=== PATIENT | female | born 1970 | race Caucasian/White ===

== ENCOUNTER 2021-11-21 14:09 | Emergency (ER) | payer MEDICAID ==
[~2021-11-21] VITALS: Ht 160 cm; Wt 54.8 kg
[~2021-11-21 14:09] MED LIST: FOLI1TAB33; GABA-486; LACT10SO3; LORA0.5T; MGX400T PO; OXYC-556; POTA-164; RISP0.5T65; SPIR50TA4
--- NOTE | 2021-11-21 14:48 | ED Abdominal Pain ---
General Chief Complaint: Abdominal/GI Problems Stated Complaint: ABNORMAL LABS Source of Information: Patient Exam Limitations: No Limitations History of Present Illness Date Seen by Provider: Nov 21, 2021 Time Seen by Provider: 14:46 Initial Comments To ER by private vehicle from [facility] with reports of abdominal distention and swelling. No fevers. She has alcoholic cirrhosis and has been sober for 2 months. She has had a paracentesis done once before. She presented to [facility] with these symptoms including right upper abdominal pain. Symptoms present for about a month. She was referred to the emergency room for concern of spontaneous bacterial peritonitis. Also had some hypokalemia with a reported potassium of 2.6. Timing/Duration: Getting Worse Severity/Quality: Moderate Location: Generalized Abdomen Radiation: No Radiation Activities at Onset: None Allergies and Home Medications Allergies Coded Allergies: No Known Drug Allergies (Unverified , 10/30/15) Patient Home Medication List Home Medication List Reviewed: Yes Folic Acid (Folic Acid) 1 Mg Tablet, (Reported) Entered as Reported by: DENZEL JAMES on 07/03/16 165 Gabapentin (Gabapentin) 100 Mg Capsule, (Reported) Entered as Reported by: DENZEL JAMES on 07/03/16 165 Lactulose (Lactulose) 10 Gm/15 Ml Solution, (Reported) Entered as Reported by: DENZEL JAMES on 07/03/16 165 Lorazepam (Lorazepam) 0.5 Mg Tablet, (Reported) Entered as Reported by: DENZEL JAMES on 07/03/161655 Magnesium Oxide (Magnesium Oxide) 400 Mg Tablet, 400 MG PO BID Prescribed by: LAWRENCE CHAU on 10/30/152133 Oxycodone HCl/Acetaminophen (Oxycodone-Acetaminophen 10-325) 1 Each Tablet, (Reported) Entered as Reported by: DENZEL JAMES on 07/03/16 165 Potassium Chloride (Klor-Con M10) 10 Meq Tab.er.prt, (Reported) Entered as Reported by: DENZEL JAMES on 07/03/16 165 Risperidone (Risperidone) 0.5 Mg Tablet, (Reported) Entered as Reported by: DENZEL JAMES on 07/03/16 165 Spironolactone (Spironolactone) 50 Mg Tablet, (Reported) Entered as Reported by: DENZEL JAMES on 07/03/16 6696 Review of Systems Review of Systems Constitutional: see HPI; No fever EENTM: No Symptoms Reported Respiratory: No Symptoms Reported Cardiovascular: No Symptoms Reported Gastrointestinal: See HPI, Abdominal Pain; Denies Diarrhea, Denies Nausea Genitourinary: No Symptoms Reported Musculoskeletal: no symptoms reported Skin: no symptoms reported Psychiatric/Neurological: No Symptoms Reported Endocrine: No Symptoms Reported Hematologic/Lymphatic: No Symptoms Reported Past Divocyp-Lhwbit-Dcjsrn Hx Immunizations Up To Date Tetanus Booster (TDap): Less than 5yrs Past Medical History Section, Gallbladder 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 Disorders: No Female 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 Disorders: Denies 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 oz. 45.799824kw; BMI Method:Stated General Appearance: WD/WN, no apparent distress HEENT: PERRL/EOMI, normal ENT inspection Respiratory: no respiratory distress, no accessory muscle use Gastrointestinal: soft, other (Right side of her abdomen is tender to palpation, left side is not. Abdomen is distended) Extremities: normal range of motion, non-tender Neurologic/Psychiatric: alert, normal mood/affect, oriented x 3 Skin: normal color, warm/dry Progress/Results/Core Measures Results/Orders Lab Results Laboratory Tests Test 11/21/21 14:40 11/21/21 15:57 Range/Units White Blood Count 10.7 4.3-11.0 10^3/uL Red Blood Count 3.15 L 3.80-5.11 10^6/uL Hemoglobin 10.9 L 11.5-16.0 g/dL Hematocrit 33 L 35-52 % Mean Corpuscular Volume 104 H 80-99 fL Mean Corpuscular Hemoglobin 35 H 25-34 pg Mean Corpuscular Hemoglobin Concent 33 32-36 g/dL Red Cell Distribution Width 17.7 H 10.0-14.5 % Platelet Count 275 130-400 10^3/uL Mean Platelet Volume 10.2 9.0-12.2 fL Immature Granulocyte % (Auto) 1 % Neutrophils (%) (Auto) 78 H 42-75 % Lymphocytes (%) (Auto) 13 12-44 % Monocytes (%) (Auto) 7 0-12 % Eosinophils (%) (Auto) 1 0-10 % Basophils (%) (Auto) 1 0-10 % Neutrophils # (Auto) 8.3 H 1.8-7.8 10^3/uL Lymphocytes # (Auto) 1.4 1.0-4.0 10^3/uL Monocytes # (Auto) 0.8 0.0-1.0 10^3/uL Eosinophils # (Auto) 0.1 0.0-0.3 10^3/uL Basophils # (Auto) 0.1 0.0-0.1 10^3/uL Immature Granulocyte # (Auto) 0.1 0.0-0.1 10^3/uL Prothrombin Time 17.6 H 12.2-14.7 SEC INR Comment 1.4 0.8-1.4 Sodium Level 131 L 135-145 MMOL/L Potassium Level 3.3 L 3.6-5.0 MMOL/L Chloride Level 94 L 98-107 MMOL/L Carbon Dioxide Level 22 21-32 MMOL/L Anion Gap 15 H 5-14 MMOL/L Blood Urea Nitrogen 7 7-18 MG/DL Creatinine 0.68 0.60-1.30 MG/DL Estimat Glomerular Filtration Rate 104 BUN/Creatinine Ratio 10 Glucose Level 127 H 70-105 MG/DL Calcium Level 7.9 L 8.5-10.1 MG/DL Corrected Calcium 9.0 8.5-10.1 MG/DL Magnesium Level 1.2 L 1.6-2.4 MG/DL Total Bilirubin 4.8 H 0.1-1.0 MG/DL Aspartate Amino Transf (AST/SGOT) 76 H 5-34 U/L Alanine Aminotransferase (ALT/SGPT) 11 0-55 U/L Alkaline Phosphatase 149 H 40-136 U/L Total Protein 8.2 6.4-8.2 GM/DL Albumin 2.6 L 3.2-4.5 GM/DL Procalcitonin 0.17 H <0.10 NG/ML My Orders Orders - BIMAL TURNER MAORI LIAISON ADVISER Cbc With Automated Diff (11/21/21 14:25) Comprehensive Metabolic Panel (11/21/21 14:25) Ed Iv/Invasive Line Start (11/21/21 14:25) Magnesium (11/21/21 14:25) Protime With Inr (11/21/21 14:26) Procalcitonin (Pct) (11/21/21 14:26) Body Fluid Cell Count (11/21/21 14:48) Body Fluid Culture (11/21/21 14:48) Cytology Requistion | Nursing (11/21/21 15:57) Albumin 25% 25 Gm/100 Ml (Albumin 25% 25 (11/21/21 16:00) Medications Given in ED Current Medications Medications Dose Ordered Sig/Rita Route Start Time Stop Time Status Last Admin Dose Admin Albumin Human 100 ml @ 50 mls/hr ONCE ONCE IV 11/21/21 16:00 11/21/21 17:59 11/21/21 16:18 50 MLS/HR Vital Signs/I&O 11/21/21 14:21 Temp 36.8 Pulse 121 Resp 20 B/P (MAP) 109/78 (88) Pulse Ox 98 O2 Delivery Room Air Departure Communication (Admissions) 1556-total of 4400 mL of clear yellow ascites fluid was removed. The paracentesis drain was removed covered with gauze and an OpSite. Abdomen feels much better. Impression Primary Impression: Ascites Additional Impression: Cirrhosis Disposition: 01 HOME, SELF-CARE Condition: Stable Departure-Patient Inst. Decision time for Depature: 16:20 Referrals: JUANI RUIZ MD (PCP/Family) Primary Care Physician Patient Instructions: Fluid in the Belly (Ascites) Add. Discharge Instructions: 1. Follow-up with [facility] to discuss getting an ultrasound of the liver. Return to ER for any worsening. All discharge instructions reviewed with patient and/or family. Voiced understanding. BIMAL TURNER APRN Nov 21, 2021 14:48
[2021-11-21 14:49] LABS: BASOPHILS # (AUTO) 0.1 10^3/uL (0.0-0.1); BASOPHILS % (AUTO) 1 % (0-10); EOSINOPHILS # (AUTO) 0.1 10^3/uL (0.0-0.3); EOSINOPHILS % (AUTO) 1 % (0-10); HEMATOCRIT 33 % (35-52); HEMOGLOBIN 10.9 g/dL (11.5-16.0); LYMPHOCYTES # (AUTO) 1.4 10^3/uL (1.0-4.0); LYMPHOCYTES % (AUTO) 13 % (12-44); MEAN CORPUSCULAR HEMOGLOBIN 35 pg (25-34); MEAN CORPUSCULAR HGB CONC 33 g/dL (32-36); MEAN CORPUSCULAR VOLUME 104 fL (80-99); MEAN PLATELET VOLUME 10.2 fL (9.0-12.2); MONOCYTES # (AUTO) 0.8 10^3/uL (0.0-1.0); MONOCYTES % (AUTO) 7 % (0-12); NEUTROPHILS # (AUTO) 8.3 10^3/uL (1.8-7.8); NEUTROPHILS % (AUTO) 78 % (42-75); PLATELET COUNT 275 10^3/uL (130-400); WHITE BLOOD COUNT 10.7 10^3/uL (4.3-11.0)
[2021-11-21 14:59] LABS: INR 1.4 (0.8-1.4); PROTHROMBIN TIME PATIENT 17.6 SEC (12.2-14.7)
[2021-11-21 15:01] LABS: ALBUMIN 2.6 GM/DL (3.2-4.5)
[2021-11-21 15:02] LABS: POTASSIUM 3.3 MMOL/L (3.6-5.0)
[2021-11-21 15:03] LABS: CALCIUM 7.9 MG/DL (8.5-10.1)
[2021-11-21 15:04] LABS: TOTAL PROTEIN 8.2 GM/DL (6.4-8.2)
[2021-11-21 15:06] LABS: BILIRUBIN,TOTAL 4.8 MG/DL (0.1-1.0)
[2021-11-21 15:08] LABS: CREATININE SERUM 0.68 MG/DL (0.60-1.30)
[2021-11-21 15:11] LABS: MAGNESIUM 1.2 MG/DL (1.6-2.4)
[2021-11-21] MEDS ORDERED: ALBUMIN 25% 25 GM/100 ML 100 ML IV ONE (16:00)
--- NOTE | 2021-11-21 16:59 | Progress Note-Post Operative ---
Post-Operative Progess Note Surgeon (s)/Tile Inspector (s) Surgeon MARY LARKIN DO Tile Inspector: none Pre-Operative Diagnosis ascites Post-Operative Diagnosis same Procedure & Operative Findings Date of Procedure 11/21/21 Procedure Performed/Findings Paracentesis The patient was in her room in the ER. Used the US to make sure there was enough fluid in the abdomen to drain and marked best site to go in with pen. The abdomen was then prepped and draped and timeout was performed. Local anesthetic was infiltrated and #11 blade scalpel was used to make a small skin incision. Cocg-A-Mjwheexr needle and catheter were then advanced until straw- colored fluid was withdrawn. The catheter was advanced and the needle was removed. A total of 4400 mL of straw-colored fluid was withdrawn. Once done draining, the catheter was removed and sterile bandage was applied. Fluid was sent for culure. The patient tolerated procedure well without any complications. Anesthesia Type local lidocaine Estimated Blood Loss Estimated blood loss (mL): scant Specimens/Packing Specimens Removed 4400ml of ascitic fluid MARY LARKIN DO Nov 21, 2021 16:59
--- NOTE | 2021-11-21 17:05 | Consultation - Surgery ---
History of Present Illness History of Present Illness Patient Consulted On(anirudh/time) 11/21/21 16:59 Time Seen by Provider: 14:42 History of Present Illness Surgery asked to consult regarding ascites. HPI per ED: To ER by private vehicle from [facility] with reports of abdominal distention and swelling. No fevers. She has alcoholic cirrhosis and has been sober for 2 months. She has had a paracentesis done once before. She presented to [facility] with these symptoms including right upper abdominal pain. Symptoms present for about a month. She was referred to the emergency room for concern of spontaneous bacterial peritonitis. Also had some hypokalemia with a reported potassium of 2.6. Timing/Duration: Getting Worse Severity/Quality: Moderate Location: Generalized Abdomen Radiation: No Radiation Activities at Onset: None When I spoke to her she stated this last time she had paracentesis was 4-5 years ago. She rated the pain as 5 out of 10, kind of a dull pain. Allergies and Home Medications Allergies Coded Allergies: No Known Drug Allergies (Unverified , 10/30/15) Patient Home Medication List Home Medication List Reviewed: Yes Folic Acid (Folic Acid) 1 Mg Tablet, (Reported) Entered as Reported by: DENZEL JAMES on 07/03/16 165 Gabapentin (Gabapentin) 100 Mg Capsule, (Reported) Entered as Reported by: DENZEL JAMES on 07/03/16 165 Lactulose (Lactulose) 10 Gm/15 Ml Solution, (Reported) Entered as Reported by: DENZEL JAMES on 07/03/16 165 Lorazepam (Lorazepam) 0.5 Mg Tablet, (Reported) Entered as Reported by: DENZEL JAMES on 07/03/16 165 Magnesium Oxide (Magnesium Oxide) 400 Mg Tablet, 400 MG PO BID Prescribed by: LAWRENCE CHAU on 10/30/15 2134 Oxycodone HCl/Acetaminophen (Oxycodone-Acetaminophen 10-325) 1 Each Tablet, (Reported) Entered as Reported by: DENZEL JAMES on 07/03/161655 Potassium Chloride (Klor-Con M10) 10 Meq Tab.er.prt, (Reported) Entered as Reported by: DENZEL JAMES on 07/03/16 165 Risperidone (Risperidone) 0.5 Mg Tablet, (Reported) Entered as Reported by: DENZEL JAMES on 07/03/161655 Spironolactone (Spironolactone) 50 Mg Tablet, (Reported) Entered as Reported by: DENZEL JAMES on 07/03/161655 Past Awhmljx-Nrbdcm-Eofqxp Hx Patient Social History Smoking Status: Smoker Current Status UNK Recent Hopitalizations: No Alcohol Use?: Yes Have you traveled recently?: No Immunizations Up To Date Tetanus Booster (TDap): Less than 5yrs Surgeries History of Surgeries: Yes Surgeries: Section, Gallbladder Respiratory History of Respiratory Disorde: No Cardiovascular History of Cardiac Disorders: No Neurological History of Neurological Disord: No 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 System Hx 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 Disorders: No Female 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 Genitourinary History of Genitourinary Disor: No Gastrointestinal History of Gastrointestinal Di: Yes Gastrointestinal Disorders: Liver Disease/Jaundice, Cirrhosis Endocrine History of Endocrine Disorders: No Cancer History of Cancer: No Psychosocial History of Psychiatric Problem: Yes Behavioral Health Disorders: Anxiety, Depression Family Medical History Significant Family History: No Pertinent Family Hx Review of Systems-General Constitutional: No chills; weight gain EENTM: No blurred vision, No mouth swelling, No epistaxis Respiratory: No cough, No dyspnea on exertion, No hemoptysis Cardiovascular: No chest pain, No edema, No palpitations Gastrointestinal: abdominal pain; No nausea, No vomiting Genitourinary: No dysuria, No frequency, No hematuria Musculoskeletal: joint pain, muscle cramps Psychiatric/Neurological: Anxiety, Depressed; Denies Tremors Physical Exam-General Problems Physical Exam Vital Signs Vital Signs - First Documented 11/21/21 14:21 Temp 36.8 Pulse 121 Resp 20 B/P (MAP) 109/78 (88) Pulse Ox 98 O2 Delivery Room Air Capillary Refill : General Appearance: no apparent distress, thin Eyes: Bilateral Eye PERRL, Bilateral Eye EOMI HEENT: pharynx normal; No scleral icterus (R), No scleral icterus (L) Neck: non-tender, supple Respiratory: lungs clear, normal breath sounds, no respiratory distress, no accessory muscle use Cardiovascular: regular rate, rhythm, no murmur Gastrointestinal: soft, distended, hepatomegaly; No spleenomegaly Neurologic/Psychiatric: alert, oriented x 3 Skin: normal color, warm/dry Data Review Labs Laboratory Tests 11/21/21 14:40: White Blood Count 10.7, Red Blood Count 3.15L, Hemoglobin 10.9L, Hematocrit 33L, Mean Corpuscular Volume 104H, Mean Corpuscular Hemoglobin 35H, Mean Corpuscular Hemoglobin Concent 33, Red Cell Distribution Width 17.7H, Platelet Count 275, Mean Platelet Volume 10.2, Immature Granulocyte % (Auto) 1, Neutrophils (%) (Auto) 78H, Lymphocytes (%) (Auto) 13, Monocytes (%) (Auto) 7, Eosinophils (%) (Auto) 1, Basophils (%) (Auto) 1, Neutrophils # (Auto) 8.3H, Lymphocytes # (Auto) 1.4, Monocytes # (Auto) 0.8, Eosinophils # (Auto) 0.1, Basophils # (Auto) 0.1, Immature Granulocyte # (Auto) 0.1, Prothrombin Time 17.6H, INR Comment 1.4, Sodium Level 131L, Potassium Level 3.3L, Chloride Level 94L, Carbon Dioxide Level 22, Anion Gap 15H, Blood Urea Nitrogen 7, Creatinine 0.68, Estimat Glomerular Filtration Rate 104, BUN/Creatinine Ratio 10, Glucose Level 127H, Calcium Level 7.9L, Corrected Calcium 9.0, Magnesium Level 1.2L, Total Bilirubin 4.8H, Aspartate Amino Transf (AST/SGOT) 76H, Alanine Aminotransferase (ALT/SGPT) 11, Alkaline Phosphatase 149H, Total Protein 8.2, Albumin 2.6L, Procalcitonin 0.17H 11/21/21 15:57: Assessment/Plan Assessment/Plan Assessment/Plan Ascites Abd pain Paracentesis and send fluid for culture MARY LARKIN DO Nov 21, 2021 17:04
[2021-11-21 17:12] LABS: BODY FLUID APPEARENCE CLEAR; BODY FLUID COLOR YELLOW; BODY FLUID RBC COUNT 43.75 /uL; BODY FLUID SOURCE PERITON; BODY FLUID WBC TOTAL COUNT 95 /uL
[2021-11-21 18:21] LABS: BF OTHER CELLS 1 %; LYMPHOCYTES,BODY FLUID 14 %
[2021-11-21 19:00] VITALS: BP 94/62
== END 2021-11-21 18:59 | disposition home or self-care (01) ==
LOC: EDUNIT# 14:09 → ER 14:10
DX: R18.8 Other ascites (principal); K74.60 Unspecified cirrhosis of liver; F41.9 Anxiety disorder, unspecified; Z79.899 Other long term (current) drug therapy
CPT/HCPCS: 36415; 80053; 83735; 84145; 85025; 85610; 87070; 87205; 89051

== ENCOUNTER 2021-12-03 20:21 | Inpatient (IN) | payer MEDICAID ==
[~2021-12-03] VITALS: Ht 160 cm; Wt 59.4 kg
--- NOTE | 2021-12-03 20:55 | ED Abdominal Pain ---
General Stated Complaint: SOA - ABD PAIN Source of Information: Patient Exam Limitations: No Limitations (BIJAN BROWN) History of Present Illness Date Seen by Provider: Dec 03, 2021 Time Seen by Provider: 20:52 Initial Comments Patient is a 51-year-old female presents ED with abdominal pain. Pain started today around 12:00. Bilateral abdominal pain described as dull. Pain has been constant. She reports nausea without vomiting or diarrhea. Similar type pain when she was here on November 21 and was treated with paracentesis with improvement . She reports increase swelling of her abdomen since having the paracentesis. Negative culture of her peritoneal fluid ruling out spontaneous bacterial peritonitis. She denies any fever. She feels she is short of breath. She noted leg swelling this past Thursday. No history of heart failure currently on Lasix, lactulose and spironolactone. Following a Dr. Dumont. She states the pain got worse this evening. Associated diarrhea. (BIJAN BROWN) Allergies and Home Medications Allergies Coded Allergies: No Known Drug Allergies (Unverified , 10/30/15) Patient Home Medication List Home Medication List Reviewed: Yes (BIJAN BROWN) Bupropion HCl (Bupropion HCl) 75 Mg Tablet, 75 MG PO DAILY, (Reported) Entered as Reported by: RIVER GARCIA on 12/04/211135 Last Action: Continued Furosemide (Furosemide) 40 Mg Tablet, 40 MG PO DAILY, (Reported) Entered as Reported by: RIVER GARCIA on 12/04/211134 Last Action: Reviewed Lactulose (Lactulose) 10 Gm/15 Ml Solution, 15 ML PO TID PRN for CONSTIPATION- 3RD LINE, (Reported) Entered as Reported by: RIVER GARCIA on 12/04/211134 Last Action: Converted Pantoprazole Sodium (Pantoprazole Sodium) 40 Mg Tablet.dr, 40 MG PO DAILY, (Reported) Entered as Reported by: RIVER GARCIA on 12/04/211134 Last Action: Continued Potassium Chloride (Potassium Chloride) 20 Meq Tablet.er, 20 MEQ PO DAILY, (Reported) Entered as Reported by: RIVER GARCIA on 12/04/211134 Last Action: Reviewed Spironolactone (Spironolactone) 50 Mg Tablet, 50 MG PO DAILY, (Reported) Entered as Reported by: RIVER GARCIA on 12/04/21 1135 Last Action: Reviewed Discontinued Medications Folic Acid (Folic Acid) 1 Mg Tablet, (Reported) Discontinued Reason: No Longer Taking Entered as Reported by: DENZEL JAMES on 07/03/161655 Last Action: Discontinued Gabapentin (Gabapentin) 100 Mg Capsule, (Reported) Discontinued Reason: No Longer Taking Entered as Reported by: DENZEL JAMES on 07/03/161655 Last Action: Discontinued Lactulose (Lactulose) 10 Gm/15 Ml Solution, (Reported) Discontinued Reason: No Longer Taking Entered as Reported by: DENZEL JAMES on 07/03/161655 Last Action: Discontinued Lorazepam (Lorazepam) 0.5 Mg Tablet, (Reported) Discontinued Reason: No Longer Taking Entered as Reported by: DENZEL JAMES on 07/03/161655 Last Action: Discontinued Magnesium Oxide (Magnesium Oxide) 400 Mg Tablet, 400 MG PO BID Discontinued Reason: No Longer Taking Prescribed by: LAWRENCE CHAU on 10/30/152133 Last Action: Discontinued Oxycodone HCl/Acetaminophen (Oxycodone-Acetaminophen 10-325) 1 Each Tablet, (Reported) Discontinued Reason: No Longer Taking Entered as Reported by: DENZEL JAMES on 07/03/161655 Last Action: Discontinued Potassium Chloride (Klor-Con M10) 10 Meq Tab.er.prt, (Reported) Discontinued Reason: No Longer Taking Entered as Reported by: DENZEL JAMES on 07/03/161655 Last Action: Discontinued Risperidone (Risperidone) 0.5 Mg Tablet, (Reported) Discontinued Reason: No Longer Taking Entered as Reported by: DENZEL JAMES on 07/03/161655 Last Action: Discontinued Spironolactone (Spironolactone) 50 Mg Tablet, (Reported) Discontinued Reason: No Longer Taking Entered as Reported by: DENZEL JAMES on 07/03/161655 Last Action: Discontinued Review of Systems Review of Systems Constitutional: No chills, No diaphoresis, No dizziness, No fever, No malaise, No weakness EENTM: No Eye Tearing, No Ear Drainage, No Ear Pain Respiratory: Denies Cough; Shortness of Air; Denies SOA With Exertion, Denies SOA at Rest Cardiovascular: Chest Pain, Edema; Denies Irregular Heart Rate Gastrointestinal: Denies Abdomen Distended; Abdominal Pain; Denies Diarrhea; Nausea; Denies Vomiting Genitourinary: Denies Burning, Denies Discharge Musculoskeletal: No back pain, No joint pain Skin: No change in color, No change in hair/nails (BIJAN BROWN) All Other Systems Reviewed Negative Unless Noted: Yes (BIJAN BROWN) Past Wdlebgz-Afmiif-Mjvexp Hx Immunizations Up To Date Tetanus Booster (TDap): Less than 5yrs (BIJAN BROWN) Past Medical History Surgeries: Yes Section, Gallbladder Respiratory: No Cardiac: No Neurological: No 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 Disorders: No Female 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 oz. 45.179712us; 21.00 BMI Method:Stated General Appearance: WD/WN, no apparent distress HEENT: PERRL/EOMI, normal ENT inspection, TMs normal Neck: non-tender, full range of motion, supple, normal inspection Respiratory: chest non-tender, lungs clear, normal breath sounds, no respiratory distress, no accessory muscle use Cardiovascular: regular rate, rhythm, no edema, no gallop, no JVD, no murmur Gastrointestinal: normal bowel sounds, soft, other (Abdominal enlargement with the distention) Extremities: normal range of motion, non-tender, normal inspection, no pedal edema, pedal edema Back: normal inspection, no CVA tenderness, no vertebral tenderness (BIJAN BROWN) Focused Exam Lactate Level 12/03/21 21:10: Lactic Acid Level 3.58*H (LAWRENCE WHITE MD) Lactic Acid Level Laboratory Tests Test 12/03/21 21:10 Lactic Acid Level 3.58 MMOL/L (0.50-2.00) *H (LAWRENCE WHITE MD) Progress/Results/Core Measures Results/Orders Lab Results Laboratory Tests Test 12/03/21 21:10 Range/Units White Blood Count 10.9 4.3-11.0 10^3/uL Red Blood Count 2.94 L 3.80-5.11 10^6/uL Hemoglobin 9.6 L 11.5-16.0 g/dL Hematocrit 29 L 35-52 % Mean Corpuscular Volume 99 80-99 fL Mean Corpuscular Hemoglobin 33 25-34 pg Mean Corpuscular Hemoglobin Concent 33 32-36 g/dL Red Cell Distribution Width 16.4 H 10.0-14.5 % Platelet Count 221 130-400 10^3/uL Mean Platelet Volume 10.4 9.0-12.2 fL Immature Granulocyte % (Auto) 1 % Neutrophils (%) (Auto) 71 42-75 % Lymphocytes (%) (Auto) 19 12-44 % Monocytes (%) (Auto) 7 0-12 % Eosinophils (%) (Auto) 2 0-10 % Basophils (%) (Auto) 1 0-10 % Neutrophils # (Auto) 7.7 1.8-7.8 10^3/uL Lymphocytes # (Auto) 2.1 1.0-4.0 10^3/uL Monocytes # (Auto) 0.8 0.0-1.0 10^3/uL Eosinophils # (Auto) 0.2 0.0-0.3 10^3/uL Basophils # (Auto) 0.1 0.0-0.1 10^3/uL Immature Granulocyte # (Auto) 0.1 0.0-0.1 10^3/uL Prothrombin Time 18.9 H 12.2-14.7 SEC INR Comment 1.5 H 0.8-1.4 Activated Partial Thromboplast Time 39 H 24-35 SEC Sodium Level 132 L 135-145 MMOL/L Potassium Level 3.3 L 3.6-5.0 MMOL/L Chloride Level 97 L 98-107 MMOL/L Carbon Dioxide Level 22 21-32 MMOL/L Anion Gap 13 5-14 MMOL/L Blood Urea Nitrogen 6 L 7-18 MG/DL Creatinine 0.70 0.60-1.30 MG/DL Estimat Glomerular Filtration Rate 103 BUN/Creatinine Ratio 9 Glucose Level 108 H 70-105 MG/DL Lactic Acid Level 3.58 *H 0.50-2.00 MMOL/L Calcium Level 8.2 L 8.5-10.1 MG/DL Corrected Calcium 9.3 8.5-10.1 MG/DL Magnesium Level 1.2 L 1.6-2.4 MG/DL Total Bilirubin 7.0 H 0.1-1.0 MG/DL Aspartate Amino Transf (AST/SGOT) 53 H 5-34 U/L Alanine Aminotransferase (ALT/SGPT) 11 0-55 U/L Alkaline Phosphatase 130 40-136 U/L Ammonia 28 11-32 UMOL/L Troponin I < 0.028 <0.028 NG/ML C-Reactive Protein High Sensitivity 3.39 H 0.00-0.50 MG/DL B-Type Natriuretic Peptide 48.0 <100.0 PG/ML Total Protein 7.5 6.4-8.2 GM/DL Albumin 2.6 L 3.2-4.5 GM/DL Procalcitonin 0.18 H <0.10 NG/ML (LAWRENCE WHITE MD) Vital Signs/I&O 12/03/21 20:45 Temp 37.1 Pulse 122 Resp 23 B/P (MAP) 115/81 (92) (LAWRENCE WHITE MD) Comment Sinus tachycardia, low voltage precordial leads, borderline prolonged QT interval, 115 bpm, QRS duration 78 MS, QTc 489 MS (BIJAN BROWN) Departure Communication (Admissions) Time/Spoke to Admitting Phy: 22:[address] Hernandez who agrees to accept patient. Recommend starting 2 g IV Rocephin. Patient was given and started on magnesium and potassium. Currently on oral supplementation. Recommend continue medication on the floor. Patient will need a therapeutic paracentesis. She was seen here on the had paracentesis performed with negative Gram stain and reassuring paracentesis fluid. Patient with normal white blood count. She is afebrile. Slight change in electrolytes. Potassium 3.3 sodium 132 magnesium 1.2. IV supplementation of magnesium and potassium. Change in bilirubin at 7. Last visit was 4.6. Chronic cirrhosis. Currently being managed by Dr. Ruiz at [facility]. She reports bilateral abdominal pain and states this feels very similar to when she was seen here on 21 November with improvement after paracentesis. She is currently on lactulose. Normal ammonia. Slight elevated lactic acid 3.87. This may be secondary to her cirrhosis, liver dysfunction or potential tissue hypoperfusion. She is not actively vomiting. She reports diarrhea today. Urine pending. Patient will be admitted to medical surgical. She is tachycardic he is currently on Lasix 40 mg daily (BIJAN BROWN) Impression Primary Impression: Ascites Disposition: ADMITTED INPATIENT Condition: Stable Admissions Decision to Admit Reason: Admit from ER (General) Decision to Admit/Date: Dec 03, 2021 Time/Decision to Admit Time: 22:31 (BIJAN BROWN) Departure-Patient Inst. Referrals: JUANI RUIZ MD (PCP/Family) Primary Care Physician ATTENDING PHYSICIAN NOTE: I was physically present as attending physician in the emergency department during the care of this patient, but I was not directly involved in the decision making or delivery of care for this patient. (LAWRENCE WHITE MD) BIJAN BROWN Dec 03, 2021 20:55 LAWRENCE WHITE MD Dec 04, 2021 18:49
--- NOTE | 2021-12-03 21:25 | Diagnostic Imaging Report ---
CHEST PA/LAT (2 VIEW) Indication: Chest pain Comparison: 10/30/2015 Findings: Slightly worsened asymmetric elevation right hemidiaphragm. No pulmonary mass or consolidation. No pleural effusion or pneumothorax. Normal heart size and mediastinal contours. Impression: No acute cardiopulmonary process. Dictated by: Dictated on workstation # [id number]
[2021-12-03 21:32] LABS: BASOPHILS # (AUTO) 0.1 10^3/uL (0.0-0.1); BASOPHILS % (AUTO) 1 % (0-10); EOSINOPHILS # (AUTO) 0.2 10^3/uL (0.0-0.3); EOSINOPHILS % (AUTO) 2 % (0-10); HEMATOCRIT 29 % (35-52); HEMOGLOBIN 9.6 g/dL (11.5-16.0); LYMPHOCYTES # (AUTO) 2.1 10^3/uL (1.0-4.0); LYMPHOCYTES % (AUTO) 19 % (12-44); MEAN CORPUSCULAR HEMOGLOBIN 33 pg (25-34); MEAN CORPUSCULAR HGB CONC 33 g/dL (32-36); MEAN CORPUSCULAR VOLUME 99 fL (80-99); MEAN PLATELET VOLUME 10.4 fL (9.0-12.2); MONOCYTES # (AUTO) 0.8 10^3/uL (0.0-1.0); MONOCYTES % (AUTO) 7 % (0-12); NEUTROPHILS # (AUTO) 7.7 10^3/uL (1.8-7.8); NEUTROPHILS % (AUTO) 71 % (42-75); PLATELET COUNT 221 10^3/uL (130-400); WHITE BLOOD COUNT 10.9 10^3/uL (4.3-11.0)
[2021-12-03 21:44] LABS: ALANINE AMINOTRANSFERASE 11 U/L (0-55); ALBUMIN 2.6 GM/DL (3.2-4.5); ALKALINE PHOSPHATASE 130 U/L (40-136); AMMONIA 28 UMOL/L (11-32); BUN/CREATININE RATIO 9; CALCIUM 8.2 MG/DL (8.5-10.1); CARBON DIOXIDE 22 MMOL/L (21-32); CHLORIDE 97 MMOL/L (98-107); GFR ESTIMATED 103; GLUCOSE 108 MG/DL (70-105); MAGNESIUM 1.2 MG/DL (1.6-2.4); POTASSIUM 3.3 MMOL/L (3.6-5.0); SODIUM 132 MMOL/L (135-145); TOTAL PROTEIN 7.5 GM/DL (6.4-8.2)
[2021-12-03 21:45] LABS: INR 1.5 (0.8-1.4); PROTHROMBIN TIME PATIENT 18.9 SEC (12.2-14.7)
[2021-12-03] MEDS ORDERED: POTASSIUM CL 10MEQ/50ML IVPB 50 ML IV STA (22:13)
[2021-12-03] MEDS ORDERED: MAGNESIUM 1 GM/100 ML IVPB 100 ML IV STA (22:13)
[2021-12-03] MEDS ORDERED: cefTRIAXone 2,000 MG in NS (IVPB) 50 ML IV ONE (22:30)
[2021-12-04] VITALS (7 sets, daily range): BP systolic 99–116; BP diastolic 57–76
[2021-12-04] MEDS ORDERED: ONDANSETRON 4 MG/2 ML (SDV) Z0FRAN IV PRN (00:45)
[2021-12-04] MEDS ORDERED: morphine INJ 4 MG/ML 1 ML (VIAL/SYRINGE) IV PRN (00:45)
[2021-12-04] MEDS: CATHETER FLUSH 10 ML SYR IVP SCH ×3 (06:02→19:35)
[2021-12-04 06:05] LABS: BASOPHILS # (AUTO) 0.1 10^3/uL (0.0-0.1); BASOPHILS % (AUTO) 1 % (0-10); EOSINOPHILS # (AUTO) 0.2 10^3/uL (0.0-0.3); EOSINOPHILS % (AUTO) 2 % (0-10); HEMATOCRIT 26 % (35-52); HEMOGLOBIN 8.7 g/dL (11.5-16.0); LYMPHOCYTES # (AUTO) 1.7 10^3/uL (1.0-4.0); LYMPHOCYTES % (AUTO) 19 % (12-44); MEAN CORPUSCULAR HEMOGLOBIN 32 pg (25-34); MEAN CORPUSCULAR HGB CONC 33 g/dL (32-36); MEAN CORPUSCULAR VOLUME 97 fL (80-99); MEAN PLATELET VOLUME 10.3 fL (9.0-12.2); MONOCYTES # (AUTO) 0.7 10^3/uL (0.0-1.0); MONOCYTES % (AUTO) 8 % (0-12); NEUTROPHILS % (AUTO) 70 % (42-75); PLATELET COUNT 192 10^3/uL (130-400); WHITE BLOOD COUNT 8.7 10^3/uL (4.3-11.0)
[2021-12-04 06:17] LABS: POTASSIUM 3.2 MMOL/L (3.6-5.0)
[2021-12-04 06:18] LABS: CALCIUM 8.3 MG/DL (8.5-10.1)
[2021-12-04 06:23] LABS: CREATININE SERUM 0.59 MG/DL (0.60-1.30)
[2021-12-04] MEDS ORDERED: FUROSEMIDE 40 MG (LASIX) TAB PO SCH (07:00)
[2021-12-04] MEDS ORDERED: MAGNESIUM 1 GM/100 ML IVPB 100 ML IV ONE (07:45)
[2021-12-04] MEDS ORDERED: KCL 20 MEQ TAB (K-DUR) PO ONE (07:45)
[2021-12-04 08:08] LABS: ALBUMIN 2.2 GM/DL (3.2-4.5); BILIRUBIN,INDIRECT 2.4 MG/DL; BILIRUBIN,TOTAL 5.4 MG/DL (0.1-1.0); TOTAL PROTEIN 6.6 GM/DL (6.4-8.2)
[2021-12-04] MEDS: MAGNESIUM OXIDE (MAG-OX)400 MG TAB PO SCH ×2 (09:32→19:35)
[2021-12-04] MEDS: SPIRONOLACTONE 25 MG (ALDACTONE) TAB PO SCH (09:32)
[2021-12-04] MEDS: KCL 10 MEQ TAB (MICRO K) PO SCH ×4 (09:47→19:35)
--- NOTE | 2021-12-04 10:01 | Diagnostic Imaging Report ---
INDICATION: Ascites. Cirrhosis. Evaluate for portal vein thrombosis. PROCEDURE: Ultrasound abdomen complete. TECHNIQUE: Multiple Real-time grayscale images were obtained of the abdomen in various projections. COMPARISON: None. FINDINGS: The liver is enlarged and has a nodular contour. No focal hepatic lesions are seen. There is heterogeneous echogenicity throughout the liver. The portal vein is patent and demonstrates hepatopetal flow. The gallbladder is surgically absent. The common bile duct is obscured due to overlying bowel gas. No intra or extrahepatic biliary dilation is seen. The pancreas, aorta, and IVC are not visualized due to overlying bowel gas. The spleen is enlarged measuring 12 cm in length. No focal splenic lesions are seen. A small amount of ascites is seen in the upper abdomen. The right kidney measures 10.7 cm in length and the left measures 10.0 cm. No acute sonographic abnormality is seen in the kidneys. No hydronephrosis or solid renal mass. IMPRESSION: 1. Cirrhotic morphology of the liver. No focal hepatic lesions are seen. Consider liver protocol CT or MRI to screen for hepatocellular carcinoma. 2. Stigmata of portal hypertension with a small amount of ascites in the upper abdomen and splenomegaly. The portal vein is patent and demonstrates hepatopetal flow. Dictated by: Dictated on workstation # [id number]
[2021-12-04] MEDS ORDERED: LIDOCAINE 1% INJ 50 ML (XYLOCAINE) VIAL ONE (10:47)
[2021-12-04] MEDS ORDERED: POTA-51 PO (11:35)
[2021-12-04] MEDS ORDERED: LACT10SO33 PO (11:35)
[2021-12-04] MEDS ORDERED: PANT40TA52 PO (11:35)
[2021-12-04] MEDS ORDERED: FURO40TA4 PO (11:35)
[2021-12-04] MEDS ORDERED: SPIR50TA4 PO (11:35)
[2021-12-04] MEDS ORDERED: BUPR-168 PO (11:36)
--- NOTE | 2021-12-04 11:48 | Procedure/Intervention Note ---
Procedure Note Preoperative Date of Service: Dec 04, 2021 Time of Procedure: 11:15 Vital Signs Date Time Temp Pulse Resp B/P (MAP) Pulse Ox O2 Delivery O2 Flow Rate FiO2 12/04/21 11:04 37.2 113 18 99/66 (77) 98 Room Air Indication Cirrhosis with ascites and shortness of breath Risk/Time Out Risk and benefits explained to patient or legal guardian, verbal and written consent given. Time out performed, verified correct patient, correct procedure, correct site, and consent documented. Prep/Sedation Prepartation: Chlorhexidine, Drape Procedure-General Paracentesis: With patient supine in bed, site on left lower quadrant was marked 3 cm medial and 3 cm cephalad to the ASIS and cleaned with chlorhexidine. The skin was anesthesized with 1% lidocaine 3 ml wheal with a 27 gauge needle. After this the track was numbed with lidocaine by inserting the needle in approximately 5 mm increments with aspiration at each advancement. Next the paracnetesis needle was inserted along the anesthetized pathway after making a small delilah in the skin with an 11 blade scalpel. However, no ascitic fluid was able to be aspirated and procedure was ended. No bleeding was noted from insertion site and bandage was placed. Pt was stable after the procedure. Estimated Blood Loss Bleeding: Minimal Less than 1 mL: Yes Complications Unable to obtain ascitic fluid. MERY RODRIGUEZ MD Dec 04, 2021 11:48
--- NOTE | 2021-12-04 11:59 | History & Physical ---
HEATHER AGUSTIN III MED STUDENT 12/04/21 1159: HPI History of Present Illness: Pt is a 51yo female w/ pmhx of alcohol induced cirrhosis w/ hx of large volume paracentesis who presented to the ED on 12/03 because of significant abdominal pain and SOB related increased abdominal swelling. Describes the pain as being "in the front of her stomach on both sides, closer to the middle". The significant pain is the reason she decided to present to the ED at this time. Notes that she had 4.5L of fluid removed on 11/21/2021 in the ED. Prior to this she has had 1 paracentesis 4-5 years ago when she first found out she had cirrhosis of the liver. States that she takes lactulose, spironolactone, and lasix at home. States that she was told to stop taking lasix a year ago by her PCP but recently started 40mg qday again around 11/26 following her paracentesis. Does note a history of elevated ammonia levels w/ related confusion in prior years related to hospital admission but could not give an approximate year for this. Denies any fevers, sick contact exposure, dysuria, hematuria, flank pain. Does endorse a 25# weight gain over the previous 3 weeks (notes baseline weight is about 103), has SOB related to abdominal distention, and chest pressure that is worse w/ deep inspiration, centrally located w/o radiation. Source: patient Exam Limitations: no limitations Date seen by provider: Dec 04, 2021 Time Seen by Provider: 09:45 Attending Physician Courtney Rodriguez MD PCP Eddie Nolasco MD Consult Date of Admission Dec 03, 2021 at 22:18 Home Medications Home Medications Reviewed patient Home Medication Reconciliation performed by pharmacy medication reconciliations control room technician and/or nursing. Patients Allergies have been reviewed. Allergies Coded Allergies: No Known Drug Allergies (Unverified , 10/30/15) CDB-Xovvxa-Zjnsps Hx Patient Social History Smoking Status: Never a Smoker Recent Hopitalizations: No Alcohol Use?: Yes (states she quit 3 years ago) Have you traveled recently?: No Immunizations Up To Date Tetanus Booster (TDap): Less than 5yrs Influenza Vaccine Up-to-Date: Yes; Up-to-Date First/Initial COVID19 Vaccinat: n/a Past Medical History alcohol abuse liver cirrhosis (patient states stage IV) unspecified mood disorder Family Medical History Significant Family History: No Pertinent Family Hx, Cancer (Prostate cancer in father), Other Conditions/Hx (Parkinson disease in mom ) Review of Systems ([facility]) Constitutional: chills, diaphoresis; No dizziness, No fever; malaise, weakness, weight gain EENTM: No see HPI, No no symptoms reported, No ear discharge, No hearing loss, No ear pain, No blurred vision, No double vision, No eye pain, No tearing, No vision loss, No dental problems, No hoarseness, No mouth pain, No mouth swelling, No epistaxis, No nose congestion, No nose pain, No throat pain, No throat swelling, No other Respiratory: No cough; dyspnea on exertion; No hemoptysis; short of breath Cardiovascular: chest pain (describes more as pressure), edema Gastrointestinal: abdominal pain (RLQ, LLQ, periumbilical), diarrhea (describes frequent loose stools, but does take 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); No hematemesis; jaundice; No melena, No nausea, No vomiting Genitourinary: no symptoms reported : No Musculoskeletal: back pain (thinks it is related to her abdominal pain) Skin: change in color (jaundiced) Psychiatric/Neurological: No Symptoms Reported Reviewed Test Results Reviewed Test Results Lab Laboratory Tests Test 12/03/21 21:10 12/03/21 23:55 12/04/21 05:31 Range/Units White Blood Count 10.9 8.7 4.3-11.0 10^3/uL Red Blood Count 2.94 L 2.71 L 3.80-5.11 10^6/uL Hemoglobin 9.6 L 8.7 L 11.5-16.0 g/dL Hematocrit 29 L 26 L 35-52 % Mean Corpuscular Volume 99 97 80-99 fL Mean Corpuscular Hemoglobin 33 32 25-34 pg Mean Corpuscular Hemoglobin Concent 33 33 32-36 g/dL Red Cell Distribution Width 16.4 H 16.6 H 10.0-14.5 % Platelet Count 221 192 130-400 10^3/uL Mean Platelet Volume 10.4 10.3 9.0-12.2 fL Immature Granulocyte % (Auto) 1 1 % Neutrophils (%) (Auto) 71 70 42-75 % Lymphocytes (%) (Auto) 19 19 12-44 % Monocytes (%) (Auto) 7 8 0-12 % Eosinophils (%) (Auto) 2 2 0-10 % Basophils (%) (Auto) 1 1 0-10 % Neutrophils # (Auto) 7.7 6.0 1.8-7.8 10^3/uL Lymphocytes # (Auto) 2.1 1.7 1.0-4.0 10^3/uL Monocytes # (Auto) 0.8 0.7 0.0-1.0 10^3/uL Eosinophils # (Auto) 0.2 0.2 0.0-0.3 10^3/uL Basophils # (Auto) 0.1 0.1 0.0-0.1 10^3/uL Immature Granulocyte # (Auto) 0.1 0.0 0.0-0.1 10^3/uL Prothrombin Time 18.9 H 12.2-14.7 SEC INR Comment 1.5 H 0.8-1.4 Activated Partial Thromboplast Time 39 H 24-35 SEC Sodium Level 132 L 131 L 135-145 MMOL/L Potassium Level 3.3 L 3.2 L 3.6-5.0 MMOL/L Chloride Level 97 L 98 98-107 MMOL/L Carbon Dioxide Level 22 21 21-32 MMOL/L Anion Gap 13 12 5-14 MMOL/L Blood Urea Nitrogen 6 L 6 L 7-18 MG/DL Creatinine 0.70 0.59 L 0.60-1.30 MG/DL Estimat Glomerular Filtration Rate 103 108 BUN/Creatinine Ratio 9 10 Glucose Level 108 H 103 70-105 MG/DL Lactic Acid Level 3.58 *H 1.57 0.50-2.00 MMOL/L Calcium Level 8.2 L 8.3 L 8.5-10.1 MG/DL Corrected Calcium 9.3 8.5-10.1 MG/DL Magnesium Level 1.2 L 1.6-2.4 MG/DL Total Bilirubin 7.0 H 5.4 H 0.1-1.0 MG/DL Aspartate Amino Transf (AST/SGOT) 53 H 45 H 5-34 U/L Alanine Aminotransferase (ALT/SGPT) 11 10 0-55 U/L Alkaline Phosphatase 130 115 40-136 U/L Ammonia 28 11-32 UMOL/L Troponin I < 0.028 <0.028 NG/ML C-Reactive Protein High Sensitivity 3.39 H 0.00-0.50 MG/DL B-Type Natriuretic Peptide 48.0 <100.0 PG/ML Total Protein 7.5 6.6 6.4-8.2 GM/DL Albumin 2.6 L 2.2 L 3.2-4.5 GM/DL Procalcitonin 0.18 H <0.10 NG/ML Direct Bilirubin 3.0 H 0.0-0.3 MG/DL Indirect Bilirubin 2.4 MG/DL Vital Sign - Last 24 Hours 12/03/21 12/04/21 12/04/21 12/04/21 20:45 00:01 00:15 00:20 Temp 37.1 36.0 Pulse 122 112 114 Resp 23 20 20 B/P (MAP) 115/81 (92) 106/80 116/76 (89) Pulse Ox 100 98 98 O2 Delivery Room Air Room Air Room Air 12/04/21 12/04/21 12/04/21 12/04/21 01:00 03:47 07:00 07:14 Temp 36.7 36.4 Pulse 110 115 116 110 Resp 18 20 B/P (MAP) 102/70 (81) 109/76 (87) Pulse Ox 98 97 O2 Delivery Room Air Room Air 12/04/21 12/04/21 08:39 11:04 Temp 37.2 Pulse 113 Resp 18 B/P (MAP) 99/66 (77) Pulse Ox 97 98 O2 Delivery Room Air Room Air Intake and Output 12/03/21 12/03/21 12/04/21 15:00 23:00 07:00 Intake Total 600 ml Balance 600 ml Radiology CHEST PA/LAT (2 VIEW) Indication: Chest pain Comparison: 10/30/2015 Findings: Slightly worsened asymmetric elevation right hemidiaphragm. No pulmonary mass or consolidation. No pleural effusion or pneumothorax. Normal heart size and mediastinal contours. Impression: No acute cardiopulmonary process. US ABDOMEN COMPLETE 14059 INDICATION: Ascites. Cirrhosis. Evaluate for portal vein thrombosis. PROCEDURE: Ultrasound abdomen complete. TECHNIQUE: Multiple Real-time grayscale images were obtained of the abdomen in various projections. COMPARISON: None. FINDINGS: The liver is enlarged and has a nodular contour. No focal hepatic lesions are seen. There is heterogeneous echogenicity throughout the liver. The portal vein is patent and demonstrates hepatopetal flow. The gallbladder is surgically absent. The common bile duct is obscured due to overlying bowel gas. No intra or extrahepatic biliary dilation is seen. The pancreas, aorta, and IVC are not visualized due to overlying bowel gas. The spleen is enlarged measuring 12 cm in length. No focal splenic lesions are seen. A small amount of ascites is seen in the upper abdomen. The right kidney measures 10.7 cm in length and the left measures 10.0 cm. No acute sonographic abnormality is seen in the kidneys. No hydronephrosis or solid renal mass. IMPRESSION: 1. Cirrhotic morphology of the liver. No focal hepatic lesions are seen. Consider liver protocol CT or MRI to screen for hepatocellular carcinoma. 2. Stigmata of portal hypertension with a small amount of ascites in the upper abdomen and splenomegaly. The portal vein is patent and demonstrates hepatopetal flow. Physical Exam-([facility]) Physical Exam Vital Signs VS - Last 72 Hours, by Label 12/03/21 12/04/21 12/04/21 12/04/21 20:45 00:01 00:15 00:20 Temp 37.1 36.0 Pulse 122 112 114 Resp 23 20 20 B/P (MAP) 115/81 (92) 106/80 116/76 (89) Pulse Ox 100 98 98 O2 Delivery Room Air Room Air Room Air 12/04/21 12/04/21 12/04/21 12/04/21 01:00 03:47 07:00 07:14 Temp 36.7 36.4 Pulse 110 115 116 110 Resp 18 20 B/P (MAP) 102/70 (81) 109/76 (87) Pulse Ox 98 97 O2 Delivery Room Air Room Air 12/04/21 12/04/21 08:39 11:04 Temp 37.2 Pulse 113 Resp 18 B/P (MAP) 99/66 (77) Pulse Ox 97 98 O2 Delivery Room Air Room Air Capillary Refill : Less Than 3 Seconds General Appearance: mild distress (in obvious discomfort while laying in bed) Eyes: Bilateral Eye Normal Inspection (no scleral icterus present on exam this AM), Bilateral Eye PERRL, Bilateral Eye EOMI HEENT: PERRL/EOMI, pharynx normal Neck: non-tender, full range of motion, supple, normal inspection; No lymphadenopathy (R), No lymphadenopathy (L) Respiratory: lungs clear (no obvious wheezes, crackles, rhonchi appreciated in bilateral lungs on exam ), no respiratory distress, no accessory muscle use; No crackles, No rhonchi, No stridor, No wheezing; other (some sternal tenderness to palpation on exam) Cardiovascular: normal peripheral pulses, regular rate, rhythm, no JVD, no murmur Peripheral Pulses: 2+ Dorsalis Pedis (R), 2+ Left Dors-Pedis (L), 2+ Radial Pulses (R), 2+ Radial Pulses (L) Gastrointestinal: normal bowel sounds, distended; No guarding, No rebound; tenderness, other (fluid wave appreciated on exam, obvious distention and tenderness to palpation in entire abdomen (more in bilateral lower quadrants)) Rectal: deferred Back: normal inspection, no CVA tenderness, no vertebral tenderness Extremities: normal range of motion, non-tender, no calf tenderness, normal capillary refill, swelling (bilateral lower extremity edema 1+ to mid-saldana) Neurologic/Psychiatric: 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 Concern for progression towards decompensated cirrhosis vs HCC vs viral hepatitis vs portal vein thrombosis. No focal hepatic lesions seen on abdominal US. May consider liver CT or MRI to screen for hepatocellular carcinoma. Portal vein is patent and demonstrates hepatopetal flow. Stigmata of portal hypertension with a small amount of ascites in the upper abdomen and splenomegaly. Attempt to drain ascitic fluid yielded no fluid on 12/04. Hepatitis panel ordered. Rocephin ordered for SBP ppx. May consider lactulose or rifaximin if concern for elevated ammonia level Qualifiers: Qualified Codes: K70.31 - Alcoholic cirrhosis of liver with ascites (2) Ascites Status: Acute Assessment & Plan: Stigmata of portal hypertension with a small amount of ascites in the upper abdomen and splenomegaly seen on abdominal US on 12/04. Attempt to drain ascitic fluid yielded no fluid. Hepatitis panel ordered. Rocephin ordered for SBP ppx. Lasix and spironolactone. Qualifiers: Qualified Codes: K70.31 - Alcoholic cirrhosis of liver with ascites (3) Abdominal pain Status: Acute Qualifiers: Qualified Codes: R10.30 - Lower abdominal pain, unspecified (4) Elevated transaminase level Status: Acute Assessment & Plan: AST elevated at 45, likely related to known cirrhosis but differential of other potential causes includes: HCC, viral hepatitis, portal vein thrombosis (5) Bilirubinemia Status: Acute Assessment & Plan: Total bilirubin 5.4, and direct 3.4 on admission. Uncertain if acute vs chronic levels. Likely related to known cirrhosis (6) Lactic acidosis Status: Resolved Assessment & Plan: 3.58 on admission, decreased to 1.57 on 12/04 COURTNEY RODRIGUEZ MD 12/04/21 1559: Home Medications Allergies Coded Allergies: No Known Drug Allergies (Unverified , 10/30/15) Physical Exam-([facility]) Physical Exam General Appearance: other (appears uncomfortable) Respiratory: lungs clear, normal breath sounds Cardiovascular: regular rate, rhythm, no murmur Gastrointestinal: normal bowel sounds, distended, tenderness (diffuse) Extremities: pedal edema Neurologic/Psychiatric: alert, normal mood/affect, oriented x 3 Skin: jaundice Assessment/Plan Assessment/Plan Admission Status: Observation Supervisory-Addendum Brief Verification & Attestation Participated in pt care: history, MDM, physical Personally performed: exam, history, MDM Care discussed with: Medical Student Procedures: n/a I personally saw and evaluated patient and repeated history. See my physical exam for my findings, I did not confirm all the exam findings documented by the medical student, but instead performed my own as documented. I directed the plan of care as documented by the medical student. HEATHER AGUSTIN III MED STUDENT Dec 04, 2021 11:59 COURTNEY RODRIGUEZ MD Dec 04, 2021 15:59
[2021-12-04] MEDS ORDERED: LACTULOSE SYRUP 10GM/15ML (ENULOSE) 30ML UDC PO PRN (16:00)
[2021-12-04] MEDS ORDERED: NON-FORMULARY MEDICATION 1 EA EA (Lactulose 15 ML) PO PRN (16:00)
[2021-12-04] MEDS: FUROSEMIDE 40 MG (LASIX) TAB PO SCH (16:28)
[2021-12-04] MEDS ORDERED: cefTRIAXone 2,000 MG/NS 50 ML IVPB IV SCH ×2 (21:00)
[2021-12-04 22:36] LABS: HEPATITIS C ANTIBODY C Non-Reactive (Non-Reactive)
[2021-12-05 03:09] VITALS: BP 96/56
[2021-12-05 06:06] LABS: HEMATOCRIT 24 % (35-52); HEMOGLOBIN 8.3 g/dL (11.5-16.0); MEAN CORPUSCULAR HEMOGLOBIN 33 pg (25-34); MEAN CORPUSCULAR HGB CONC 34 g/dL (32-36); MEAN CORPUSCULAR VOLUME 97 fL (80-99); MEAN PLATELET VOLUME 10.7 fL (9.0-12.2); PLATELET COUNT 162 10^3/uL (130-400); WHITE BLOOD COUNT 7.4 10^3/uL (4.3-11.0)
[2021-12-05 06:14] LABS: ALBUMIN 2.1 GM/DL (3.2-4.5)
[2021-12-05 06:15] LABS: POTASSIUM 3.1 MMOL/L (3.6-5.0)
[2021-12-05 06:16] LABS: CALCIUM 8.1 MG/DL (8.5-10.1)
[2021-12-05 06:17] LABS: TOTAL PROTEIN 6.5 GM/DL (6.4-8.2)
[2021-12-05 06:19] LABS: BILIRUBIN,TOTAL 3.6 MG/DL (0.1-1.0)
[2021-12-05 06:21] LABS: CREATININE SERUM 0.69 MG/DL (0.60-1.30)
[2021-12-05] MEDS: FUROSEMIDE 40 MG (LASIX) TAB PO SCH ×2 (06:27→16:39)
[2021-12-05] MEDS: CATHETER FLUSH 10 ML SYR IVP SCH ×3 (06:27→20:40)
[2021-12-05 08:00] VITALS: BP 110/71
[2021-12-05] MEDS ORDERED: KCL 20 MEQ TAB (K-DUR) PO ONE (08:30)
[2021-12-05] MEDS: KCL 10 MEQ TAB (MICRO K) PO SCH ×4 (08:52→20:40)
[2021-12-05] MEDS: MAGNESIUM OXIDE (MAG-OX)400 MG TAB PO SCH ×2 (08:52→20:40)
[2021-12-05] MEDS: buPROPion 75 MG (WELLBUTRIN) TAB PO SCH (08:52)
[2021-12-05] MEDS: SPIRONOLACTONE 25 MG (ALDACTONE) TAB PO SCH (08:52)
[2021-12-05] MEDS: PANTOPRAZOLE 40 MG (PROTONIX) TAB PO SCH (08:53)
[2021-12-05 12:00] VITALS: BP 97/63
[2021-12-05] MEDS ORDERED: cefTRIAXone 2,000 MG/NS 50 ML IVPB IV NR ×2 (12:00)
--- NOTE | 2021-12-05 12:23 | Progress Note ---
HEATHER AGUSTIN III MED STUDENT 12/05/21 1223: Subjective Subjective/Events-last exam Pt notes significant improvement in abdominal pain today compared to admission. Notes that her belly does not feel as distended and able to move around w/o issue. Denies any CP, SOB, dysuria, changes in bowel habits, nausea or vomiting. Pt curious as to whether it would help to restart rifaximin which she was on previously but was discontinued for uncertain reasons. Review of Systems General: No Chills, No Night Sweats, No Fatigue, No Malaise, No Appetite, No Other HEENT: No Head Aches, No Visual Changes, No Eye Pain, No Ear Pain, No Dysphasia, No Sinus Congestion, No Post Nasal Drip, No Sore Throat, No Other Pulmonary: No Dyspnea, No Cough, No Pleuritic Chest Pain, No Other Cardiovascular: No: Chest Pain, Palpitations, Orthopnea, Paroxysmal Noc. Dyspnea, Edema, Lt Headedness, Other Gastrointestinal: No: Nausea, Vomiting, Abdominal Pain, Diarrhea, Constipation, Melena, Hematochezia, Other Genitourinary: No Dysuria, No Frequency, No Incontinence, No Hematuria, No Retention, No Other Musculoskeletal: No: other, neck pain, shoulder pain, arm pain, back pain, hand pain, leg pain, foot pain Neurological: No: Weakness, Numbness, Incoordination, Change in speech, Confusion, Seizures, Other Focused Exam Lactate Level 12/03/21 21:10: Lactic Acid Level 3.58*H 12/03/21 23:55: Lactic Acid Level 1.57 Objective Exam Last Set of Vital Signs Vital Signs Date Time Temp Pulse Resp B/P (MAP) Pulse Ox O2 Delivery O2 Flow Rate FiO2 12/05/21 08:00 36.7 123 18 110/71 (84) 98 Room Air Capillary Refill : Less Than 3 Seconds I&O Intake and Output 12/04/21 23:59 Intake Total 1870 ml Output Total 1800 ml Balance 70 ml Intake Oral 1520 ml IV Total 350 ml Output Urine Total 1800 ml # Voids 3 # Bowel Movements 5 Daily Weight Change No General: Alert, Oriented X3, Cooperative, No Acute Distress HEENT: Atraumatic, PERRLA, EOMI Neck: Supple, No JVD, No Thyromegaly Lungs: Clear to Auscultation, Normal Air Movement Heart: Regular Rate, Normal S1, Normal S2, No Murmurs Abdomen: Normal Bowel Sounds, No Tenderness, Other (slight distention, no guarding or rigidity. much softer on exam today compared to admission. ) Extremities: No Clubbing, No Cyanosis, Normal Pulses, Other (trace pedal edema) Skin: Other (slight jaundice, much improved compared to admission ) Neuro: Normal Speech, Cranial Nerves 3-12 NL Psych/Mental Status: Mental Status NL Results/Procedures Lab Laboratory Tests 12/05/21 05:40: White Blood Count 7.4, Red Blood Count 2.51L, Hemoglobin 8.3L, Hematocrit 24L, Mean Corpuscular Volume 97, Mean Corpuscular Hemoglobin 33, Mean Corpuscular Hemoglobin Concent 34, Red Cell Distribution Width 16.7H, Platelet Count 162, Mean Platelet Volume 10.7, Sodium Level 130L, Potassium Level 3.1L, Chloride Level 97L, Carbon Dioxide Level 21, Anion Gap 12, Blood Urea Nitrogen 5L, Creatinine 0.69, Estimat Glomerular Filtration Rate 104, BUN/Creatinine Ratio 7, Glucose Level 119H, Calcium Level 8.1L, Corrected Calcium 9.6, Total Bilirubin 3.6H, Aspartate Amino Transf (AST/SGOT) 41H, Alanine Aminotransferase (ALT/SGPT) 12, Alkaline Phosphatase 97, Total Protein 6.5, Albumin 2.1L Laboratory Tests 12/05/21 05:40 Radiology CHEST PA/LAT (2 VIEW) Indication: Chest pain Comparison: 10/30/2015 Findings: Slightly worsened asymmetric elevation right hemidiaphragm. No pulmonary mass or consolidation. No pleural effusion or pneumothorax. Normal heart size and mediastinal contours. Impression: No acute cardiopulmonary process. US ABDOMEN COMPLETE [id number] INDICATION: Ascites. Cirrhosis. Evaluate for portal vein thrombosis. PROCEDURE: Ultrasound abdomen complete. TECHNIQUE: Multiple Real-time grayscale images were obtained of the abdomen in various projections. COMPARISON: None. FINDINGS: The liver is enlarged and has a nodular contour. No focal hepatic lesions are seen. There is heterogeneous echogenicity throughout the liver. The portal vein is patent and demonstrates hepatopetal flow. The gallbladder is surgically absent. The common bile duct is obscured due to overlying bowel gas. No intra or extrahepatic biliary dilation is seen. The pancreas, aorta, and IVC are not visualized due to overlying bowel gas. The spleen is enlarged measuring 12 cm in length. No focal splenic lesions are seen. A small amount of ascites is seen in the upper abdomen. The right kidney measures 10.7 cm in length and the left measures 10.0 cm. No acute sonographic abnormality is seen in the kidneys. No hydronephrosis or solid renal mass. IMPRESSION: 1. Cirrhotic morphology of the liver. No focal hepatic lesions are seen. Consider liver protocol CT or MRI to screen for hepatocellular carcinoma. 2. Stigmata of portal hypertension with a small amount of ascites in the upper abdomen and splenomegaly. The portal vein is patent and demonstrates hepatopetal flow. Assessment/Plan Assessment/Plan (1) Cirrhosis Status: Chronic Assessment & Plan: Known alcohol induced cirrhosis. Concern for progression towards decompensated cirrhosis vs HCC vs viral hepatitis vs portal vein t hrombosis. No focal hepatic lesions seen on abdominal US. May consider liver CT or MRI to screen for hepatocellular carcinoma. Portal vein is patent and demonstrates hepatopetal flow. Stigmata of portal hypertension with a small amount of ascites in the upper abdomen and splenomegaly. Attempt to drain ascitic fluid yielded no fluid on 12/04. Hepatitis panel negative. Rocephin ordered for SBP ppx. Will plan to restart rifaximin at this time. Plan to reconsult hepatology for further outpatient workup Qualifiers: Qualified Codes: K70.31 - Alcoholic cirrhosis of liver with ascites (2) Ascites Status: Acute Assessment & Plan: Stigmata of portal hypertension with a small amount of ascites in the upper abdomen and splenomegaly seen on abdominal US on 12/04. Attempt to drain ascitic fluid yielded no fluid. Hepatitis panel ordered. Rocephin ordered for SBP ppx which resulted in significant improvement in symptoms. Given this finding, concern for presence of SBP, however fluid was not able to be obtained during tap to assess for PMNs. Will continue admission for 2 more doses of IV abx and likely d/c home on 12/06 if pain remains gone and continue to improve. Lasix and spironolactone. Qualifiers: Qualified Codes: K70.31 - Alcoholic cirrhosis of liver with ascites (3) Abdominal pain Status: Acute Qualifiers: Qualified Codes: R10.30 - Lower abdominal pain, unspecified (4) Elevated transaminase level Status: Acute Assessment & Plan: AST elevated at 45, likely related to known cirrhosis but differential of other potential causes includes: HCC, viral hepatitis, portal vein thrombosis (5) Bilirubinemia Status: Acute Assessment & Plan: Total bilirubin 5.4, and direct 3.4 on admission. Uncertain if acute vs chronic levels. Likely related to known cirrhosis. T bili decreased to 3.6 on 12/05 (6) Lactic acidosis Status: Resolved Assessment & Plan: 3.58 on admission, decreased to 1.57 on 12/04 (7) Hypokalemia Status: Acute Assessment & Plan: K of 3.1 on 12/05, likely resulting from doubling home lasix dosage. Replaced w/ IV KCl MERY RODRIGUEZ MD 12/05/21 1652: Objective Exam General: Alert, No Acute Distress Lungs: Clear to Auscultation, Normal Air Movement Heart: Other (tachycardic) Abdomen: Normal Bowel Sounds, No Tenderness, Other (distended) Extremities: Other (trace edema) Neuro: Normal Speech Psych/Mental Status: Mood NL Assessment/Plan Assessment/Plan (1) Ascites Status: Acute Qualifiers: Qualified Codes: K70.31 - Alcoholic cirrhosis of liver with ascites (2) Cirrhosis Status: Chronic Qualifiers: Qualified Codes: K70.31 - Alcoholic cirrhosis of liver with ascites (3) Lactic acidosis Status: Resolved (4) Bilirubinemia Status: Acute (5) Abdominal pain Status: Acute Qualifiers: Qualified Codes: R10.30 - Lower abdominal pain, unspecified (6) Elevated transaminase level Status: Acute (7) Hypokalemia Status: Acute (8) SBP (spontaneous bacterial peritonitis) Status: Acute Assessment & Plan: Given marked improvement without removal of fluid but with antibiotics, suspect true SBP as underlying cause. Will complete 4 days of IV antibiotics. Supervisory-Addendum Brief Verification & Attestation Participated in pt care: history, MDM, physical Personally performed: exam, history, MDM Care discussed with: Medical Student Procedures: n/a I personally saw and examined patient, see my exam for my physical exam findings. I directed the plan of care as documented by the medical student. HEATHER AGUSTIN III MED STUDENT Dec 05, 2021 12:23 MERY RODRIGUEZ MD Dec 05, 2021 16:52
[2021-12-05 15:29] VITALS: BP 91/53
[2021-12-05 19:29] VITALS: BP 109/73
[2021-12-05] MEDS: RIFAXIMIN 550 MG TABLET (XIFAXAN) PO SCH (20:40)
[2021-12-06] VITALS: BP 96/58
[2021-12-06 04:00] VITALS: BP 94/58
[2021-12-06 06:10] LABS: BASOPHILS # (AUTO) 0.1 10^3/uL (0.0-0.1); BASOPHILS % (AUTO) 1 % (0-10); EOSINOPHILS # (AUTO) 0.2 10^3/uL (0.0-0.3); EOSINOPHILS % (AUTO) 2 % (0-10); HEMATOCRIT 27 % (35-52); LYMPHOCYTES # (AUTO) 2.1 10^3/uL (1.0-4.0); LYMPHOCYTES % (AUTO) 28 % (12-44); MEAN CORPUSCULAR HEMOGLOBIN 33 pg (25-34); MEAN CORPUSCULAR HGB CONC 34 g/dL (32-36); MEAN CORPUSCULAR VOLUME 98 fL (80-99); MEAN PLATELET VOLUME 10.4 fL (9.0-12.2); MONOCYTES # (AUTO) 0.7 10^3/uL (0.0-1.0); MONOCYTES % (AUTO) 9 % (0-12); NEUTROPHILS # (AUTO) 4.7 10^3/uL (1.8-7.8); NEUTROPHILS % (AUTO) 61 % (42-75); PLATELET COUNT 181 10^3/uL (130-400); WHITE BLOOD COUNT 7.7 10^3/uL (4.3-11.0)
[2021-12-06] MEDS: FUROSEMIDE 40 MG (LASIX) TAB PO SCH (06:10)
[2021-12-06] MEDS: CATHETER FLUSH 10 ML SYR IVP SCH (06:11)
[2021-12-06 06:20] LABS: ALBUMIN 2.3 GM/DL (3.2-4.5); POTASSIUM 3.3 MMOL/L (3.6-5.0)
[2021-12-06 06:21] LABS: CALCIUM 8.4 MG/DL (8.5-10.1)
[2021-12-06 06:23] LABS: TOTAL PROTEIN 7.1 GM/DL (6.4-8.2)
[2021-12-06 06:24] LABS: BILIRUBIN,TOTAL 3.7 MG/DL (0.1-1.0)
[2021-12-06 06:26] LABS: CREATININE SERUM 0.71 MG/DL (0.60-1.30)
[2021-12-06 07:22] VITALS: BP 102/70
[2021-12-06] MEDS ORDERED: KCL 20 MEQ TAB (K-DUR) PO ONE (07:30)
[2021-12-06] MEDS: PANTOPRAZOLE 40 MG (PROTONIX) TAB PO SCH (07:34)
[2021-12-06] MEDS: buPROPion 75 MG (WELLBUTRIN) TAB PO SCH (07:35)
[2021-12-06] MEDS: SPIRONOLACTONE 25 MG (ALDACTONE) TAB PO SCH (07:35)
[2021-12-06] MEDS: MAGNESIUM OXIDE (MAG-OX)400 MG TAB PO SCH (07:35)
[2021-12-06] MEDS: RIFAXIMIN 550 MG TABLET (XIFAXAN) PO SCH (07:36)
[2021-12-06] MEDS ORDERED: MGX400T PO (07:51)
[2021-12-06] MEDS ORDERED: RIFA550T PO (07:51)
[2021-12-06] MEDS ORDERED: FURO40TA4 PO (07:51)
[2021-12-06] MEDS ORDERED: POTA-51 PO (07:51)
[2021-12-06] MEDS ORDERED: cefTRIAXone 2,000 MG/NS 50 ML IVPB IV NR ×2 (08:00)
--- NOTE | 2021-12-06 08:13 | Physical Therapy Evaluation ---
PT Evaluation-General Medical Diagnosis Admission Date Dec 04, 2021 at 11:52 Medical Diagnosis: Ascites Onset Date: Dec 04, 2021 Therapy Diagnosis Therapy Diagnosis: weakness, debility Height/Weight Height (Feet): 5 Height (Inches): 2 Weight (Pounds): 101 Precautions Precautions/Isolations: Fall Prevention, Standard Precautions Referral Physician: David Reason for Referral: Evaluation/Treatment Medical History Pertinent Medical History: Alcoholism Additional Medical History Liver disease Cirrhosis Current History Patient to ED with reports of abdominal pain and tenderness for multiple days. Reviewed History: Yes Social History Home: Apartment Current Living Status: Alone Entry Into Home: Stairs With Railing PT Steps Into Home: 3 Patient only leaves the house with HH nurse and she carries her walker up the stairs while patient walks up the stairs with handrail. Prior Prior Level of Function SCALE: Activities may be completed with or without assistive devices. 0-[id number] completes the activity by him/herself with no assistance from a helper. 5-Set-up or Clean-up Assistance-helper sets up or cleans up; patient completes activity. [place] assists only prior to or following the activity. 4-Supervision or Touching Assistance-helper provides verbal cues and/or touching/steadying and/or contact guard assistance as patient completes activity. Assistance may be provided throughout the activity or intermittently. 3-Partial/Moderate Assistance-helper does LESS THAN HALF the effort. [place] lifts, holds or supports trunk or limbs, but provides less than half the effort. 2-Substantial/Maximal Assistance-helper does MORE THAN HALF the effort. [place] lifts or holds trunk or limbs and provides more than half the effort. 8-Veoeppjiv-fmprsp does ALL the effort. Patient does none of the effort to complete the activity. Or, the assistance of 2 or more helpers is required for the patient to complete the activity. If activity was not attempted, code reason: 7-Patient Refused. 9-Not Applicable-not attempted and the patient did not perform the activity before the current illness, exacerbation or injury. 10-Not Attempted due to Environmental Limitations-(lack of equipment, weather restraints, etc.). 88-Not Attempted due to Medical Conditions or Safety Concerns. Bed Mobility: 6 Transfers (B,C,W/C): 6 Gait: 6 Stairs: 6 Indoor Mobility (Ambulation): Independent Stairs: Independent Prior Devices Use: Walker PT Evaluation-Current Subjective Patient presented sitting on EOB eating breakfast. Patient agreed to participate in physical therapy. Objective Patient Orientation: Person, Place, Time, Situation ROM/Strength ROM Lower Extremities WFL Strength Lower Extremities 3+/5 strength bilateral grossly Integumentary/Posture Bowel Incontinence: No Bladder Incontinence: No Neuromuscular (Tone, Coordination, Reflexes) grossly intact Sensory Vision: Functional Hearing: Functional Transfers Sit to Stand (QC): 6 Gait Does the Patient Walk?: Yes Mode of Locomotion: Walk Anticipated Mode of Locomotion: Walk Walk 10 feet (QC): 6 Walk 50 ft with 2 Turns(QC): 6 Walk 150 ft (QC): 6 Distance: 200' Gait Assistive Device: Walker 4 Wheeled Comments/Gait Description Patient ambulated with her personal 4 wheel walker independently. Balance Sitting Static: Normal Sitting Dynamic: Normal Standing Static: Normal Standing Dynamic: Normal Assessment/Needs Patient is independent for ambulation and transfers. Patient reported slight SOA after ambulation but reports that she doesn't walk very much while she is at h ome. Patient is being d/c from therapy services due to independence with transfers and ambulation. Rehab Potential: Good PT Plan Treatment/Plan Treatment Plan: Discontinue PT, goals met Treatment Duration: Dec 06, 2021 Frequency: 1 time per week Time/GCodes Time In: 730 Time Out: 744 Total Billed Treatment Time: 14 Total Billed Treatment 1 Visit EVLow 14 min VANE SPRINGER PT Dec 06, 2021 08:13
[2021-12-06] MEDS: KCL 10 MEQ TAB (MICRO K) PO SCH (08:41)
[2021-12-06 11:11] VITALS: BP 91/64
[2021-12-06] MEDS ORDERED: SULF-221 PO (12:20)
--- NOTE | 2021-12-06 12:20 | Discharge Summary ---
Discharge [facility] Discharge Medications New, Converted or Re-Newed RX: Transmitted to Pharmacy New Medications: Sulfamethoxazole/Trimethoprim (Bactrim Ds Tablet) 1 Each Tablet 1 EACH PO DAILY, #30 TAB 0 Refills Magnesium Oxide (Magnesium Oxide) 400 Mg Tablet 400 MG PO BID, #60 TAB 0 Refills Rifaximin (Xifaxan) 550 Mg Tablet 550 MG PO BID, #60 TAB 0 Refills Changed Medications: Furosemide (Furosemide) 40 Mg Tablet 40 MG PO BID, #60 TAB (Changed from: DAILY) Potassium Chloride (Potassium Chloride) 20 Meq Tablet.er 40 MEQ PO DAILY, #60 TAB 0 Refills (Changed from: 20 MEQ; Refills: ) Continued Medications: Bupropion HCl (Bupropion HCl) 75 Mg Tablet 75 MG PO DAILY, TAB Lactulose (Lactulose) 10 Gm/15 Ml Solution 15 ML PO TID PRN for CONSTIPATION-3RD LINE, EA Pantoprazole Sodium (Pantoprazole Sodium) 40 Mg Tablet.dr 40 MG PO DAILY, TAB Spironolactone (Spironolactone) 50 Mg Tablet 50 MG PO DAILY, TAB Patient Instructions Goal/Follow Up Appt: Follow up with primary physician within a week of discharge. Talk to your primary doctor about getting referred back to follow up with Hepatology again. Return to The [facility] For: Fever, abdominal pain, inability to keep down medications, confusion Activity & Diet Discharge Diet: Low Sodium Diet Activity as Tolerated: Yes MERY RODRIGUEZ MD Dec 06, 2021 12:19
--- NOTE | 2021-12-06 13:29 | Discharge Summary ---
HEATHER AGUSTIN III MED STUDENT 12/06/21 1318: Discharge Summary Hospital Course Problems Reviewed?: Yes Problems/Diagnosis: (1) Ascites Status: Acute Assessment & Plan: Recurrent ascites. 4.5L removed previously. Minimal perihepatic fluid pocket seen on CT during this admission. Not amendable to being tapped during admission. Doubled lasix dosage as well as KCl on discharge in hopes to prevent fluid reaccumulating Qualifiers: Qualified Codes: K70.31 - Alcoholic cirrhosis of liver with ascites (2) Cirrhosis Status: Chronic Assessment & Plan: No hepatic masses seen on abdominal ultrasound to suggest new HCC development. Hepatitis panel negative. Recommend following up w/ PCP and re-establishing care with hepatology. Will restart rifaximin on discharge. Qualifiers: Qualified Codes: K70.31 - Alcoholic cirrhosis of liver with ascites (3) SBP (spontaneous bacterial peritonitis) Status: Acute Assessment & Plan: Given marked improvement without removal of fluid but with antibiotics, suspect true SBP as underlying cause. Will complete 4 days of IV rocephin. Given high rate of recurrence of SBP following first episode, plan to d/c pt w/ extra strength bactrim to be taken 1x daily. Continue this bactrim until follow-up with PCP in 1 week and hepatology (4) Lactic acidosis Status: Resolved Resolution Date/Time: 12/04/21 @ 12:18 (5) Bilirubinemia Status: Acute Assessment & Plan: Continues to trend down, down to 3.7 on 12/06 (6) Abdominal pain Status: Acute Assessment & Plan: Significantly improved on 12/05 following administration of antibiotics. Continues to have no abdominal pain on 12/06, able to eat and drink w/o issue Qualifiers: Qualified Codes: R10.30 - Lower abdominal pain, unspecified (7) Elevated transaminase level Status: Acute (8) Hypokalemia Status: Acute Hospital Course Date of Admission: Dec 04, 2021 at 11:52 Admission Diagnosis : Family Physician/Provider: Eddie Nolasco MD Date of Discharge: 12/06/21 Discharge Diagnosis: [ ] Hospital Course: [ ] Labs and Pending Lab Test: Laboratory Tests 12/06/21 05:59: White Blood Count 7.7, Red Blood Count 2.72L, Hemoglobin 9.0L, Hematocrit 27L, Mean Corpuscular Volume 98, Mean Corpuscular Hemoglobin 33, Mean Corpuscular Hemoglobin Concent 34, Red Cell Distribution Width 17.1H, Platelet Count 181, Mean Platelet Volume 10.4, Immature Granulocyte % (Auto) 1, Neutrophils (%) (Auto) 61, Lymphocytes (%) (Auto) 28, Monocytes (%) (Auto) 9, Eosinophils (%) ( Auto) 2, Basophils (%) (Auto) 1, Neutrophils # (Auto) 4.7, Lymphocytes # (Auto) 2.1, Monocytes # (Auto) 0.7, Eosinophils # (Auto) 0.2, Basophils # (Auto) 0.1, Immature Granulocyte # (Auto) 0.0, Sodium Level 130L, Potassium Level 3.3L, Chloride Level 94L, Carbon Dioxide Level 27, Anion Gap 9, Blood Urea Nitrogen 4L , Creatinine 0.71, Estimat Glomerular Filtration Rate 102, BUN/Creatinine Ratio 6, Glucose Level 94, Calcium Level 8.4L, Corrected Calcium 9.8, Total Bilirubin 3.7H, Aspartate Amino Transf (AST/SGOT) 44H, Alanine Aminotransferase (ALT/SGPT) 13, Alkaline Phosphatase 119, Total Protein 7.1, Albumin 2.3L Home Meds Active Bactrim Ds Tablet (Sulfamethoxazole/Trimethoprim) 1 Each Tablet 1 Each PO DAILY Magnesium Oxide 400 Mg Tablet 400 Mg PO BID Xifaxan (Rifaximin) 550 Mg Tablet 550 Mg PO BID Furosemide 40 Mg Tablet 40 Mg PO BID Potassium Chloride 20 Meq Tablet.er 40 Meq PO DAILY Reported Bupropion HCl 75 Mg Tablet 75 Mg PO DAILY Lactulose 10 Gm/15 Ml Solution 15 Ml PO TID PRN Pantoprazole Sodium 40 Mg Tablet.dr 40 Mg PO DAILY Spironolactone 50 Mg Tablet 50 Mg PO DAILY Discharge Diet: Low Sodium Diet (2000mg low sodium diet) Activity as Tolerated: Yes Discharge Physical Examination Allergies: Coded Allergies: No Known Drug Allergies (Unverified , 10/30/15) General Appearance: No Apparent Distress, WD/WN HEENT: PERRL/EOMI, Pharynx Normal, Moist Mucous Membranes Respiratory: Chest Non Tender, Lungs Clear, Normal Breath Sounds, No Accessory Muscle Use, No Respiratory Distress Cardiovascular: Regular Rate, Rhythm, No Edema, No JVD, No Murmur, Normal Peripheral Pulses Gastrointestinal: Normal Bowel Sounds, Non Tender, Soft, Distended (slight distention, though improved from admission ); No Guarding, No Rebound Extremity: Normal Capillary Refill, Normal Range of Motion, Non Tender Skin: Normal Color (jaundice improved), Warm/Dry Neurologic/Psychiatric: Alert, Oriented x3, No Motor/Sensory Deficits, Normal Mood/Affect Discharge Summary Date of Admission Dec 04, 2021 at 11:52 Date of Discharge Discharge Date: Dec 06, 2021 Admission Diagnosis Ascites, alcohol induced cirrhosis Discharge Diagnosis Ascites from alcohol cirrhosis, likely SBP (1) Ascites Status: Acute Assessment & Plan: Recurrent ascites. Small perihepatic fluid pocket seen on CT abd/pelvis that was not able to be tapped during admission. Marked improvement in pain following administration of abx. Will resume rifaximin that pt previously took. Increased [employer] lasix and potassium dosage. Recommend follow-up w/ PCP in 1 week, with recommendations to re-establish care with hepatology for further management of known cirrhosis. Qualifiers: Qualified Codes: K70.31 - Alcoholic cirrhosis of liver with ascites (2) SBP (spontaneous bacterial peritonitis) Status: Acute Assessment & Plan: Completed 4 days of IV rocephin w/ significant improvement in abdominal pain. Given high rate of recurrence of SBP following first episode, plan to d/c pt w/ extra strength bactrim to be taken 1x daily. Continue this bactrim until follow-up with PCP in 1 week and hepatology MERY RODRIGUEZ MD 12/06/21 1525: Discharge Summary Hospital Course Hospital Course See problem list Assessment/Pt DC Instructions Follow up with primary physician within a week and discuss referral back to Hepatology. Discharge Physical Examination Allergies: Coded Allergies: No Known Drug Allergies (Unverified , 10/30/15) General Appearance: No Apparent Distress Respiratory: Lungs Clear, Normal Breath Sounds Cardiovascular: Regular Rate, Rhythm, No Murmur Gastrointestinal: Normal Bowel Sounds, Non Tender, Distended (mild, much softer than on admission) Extremity: No Pedal Edema Neurologic/Psychiatric: Alert, Normal Mood/Affect Supervisory-Addendum Brief Verification & Attestation Participated in pt care: history, MDM, physical Personally performed: exam, history, MDM Care discussed with: Medical Student Procedures: n/a I personally examined patient today and repeated the history- see my exam for my physical exam findings, I did not repeat the same exam documented by the medical student. I directed the plan of care as directed by the medical student. HEATHER AGUSTIN III MED STUDENT Dec 06, 2021 13:18 MERY RODRIGUEZ MD Dec 06, 2021 15:25
[2021-12-06 14:59] VITALS: BP 91/64
== END 2021-12-06 14:30 | disposition home or self-care (01) | DRG 432 ==
LOC: EDUNIT# 20:21 → ER 20:23 → 4TH 22:18 → OBSVTOIN 12-04 11:52
PROVIDERS: ADMIT Family Medicine; ATTEND Family Medicine
PROC: 0W9G3ZZ Drainage of Peritoneal Cavity, Percutaneous Approach (ICD-10-PCS; principal; 2021-12-04)
DX: K70.31 Alcoholic cirrhosis of liver with ascites (principal); K65.2 Spontaneous bacterial peritonitis; E87.2 Acidosis; E87.6 Hypokalemia; F41.9 Anxiety disorder, unspecified; F32.A Depression, unspecified
CPT/HCPCS: 36415; 71046; 76700; 80048; 80053; 80074; 80076; 82140; 83605; 83735; 83880; 84145; 84484; 85025; 85027; 85610; 85730; 86141; 93005; G0378